=== PATIENT | male | born 1950 | race Caucasian/White ===

== ENCOUNTER 2017-03-31 12:39 | Outpatient (CLI) | payer MEDICARE, OTHER ==
[~2017-03-31] VITALS: Ht 172.7 cm; Wt 100.0 kg
[~2017-03-31 12:39] MED LIST: 00186-0370-20 IH; APRESOLINE 25MG25 MG PO; ASPIR-LOW81 MG PO; ASPIR-LOX325 MG PO; ASPIRIN 32325 MG/TAB PO; ASPIRIN E.C. 8181 MG PO; ATENOLOL25 MG PO; AVODART 0.5MG0.5 MG PO; BUMEX 1MG TA1 MG/TA1 PO; BYSTOLIC5 MG PO; CEPHALEXIN500 M1 PO; CLARITIN 1010 MG/TAB PO; CLARITIN10 MG PO; CLOPIDOGREL PO; COLCRYS0.6 MG PO; COQ-10 PO; COREG 6.256.25 MG/TA PO; DIOVAN 40MG40 MG PO; EFFIENT10 MG PO; FAMVIR 500500 MG/TAB PO; FISH OIL CONC1000 MG PO; FISH OIL CONCEN1 SG2 PO; FISH OIL1000 MG PO; FLOMAX 0.40.4 MG/CAP PO; FLONASE NASAL S16 GM NS; FOLIC ACID 11 MG/TA1 PO; HCTZ 25MG25 MG PO; HYTRIN 1MG C1 MG/CAP PO; HYTRIN 2MG CAPSU2 MG PO; IMDUR 30MG30 MG/TAB PO; KAYEXALATE15 GM/60 M PO; KEPPRA750 MG PO; LIPITOR10 MG PO; LISINOPRIL10 MG PO; LYSINE PO; MAG-OX 400400 MG/TAB PO; METOPROLOL SUCC50 MG PO; NEPHROCAP PO; NITROQUICK0.4 MG SL; NITROSTAT0.4 MG SL; NITROSTAT0.4 MG/TAB SL; NORCO 325 MG-51 TAB PO; NORCO 325 MG-7.1 TAB PO; NORVASC 5MG5 MG/TAB PO; NORVASC2.5 MG PO; OMEGA-3 FISH1000 MG PO; PERCOCET 325 MG1 TA2 PO; PHENERGAN 25 TA25 MG PO; PHENTERMINE PO; PHOS LO PO; PLAVIX 75MG TAB75 MG PO; PRAVACHOL10 MG PO; PRILOSEC 20MG20 MG PO; PRILOTC; PROVENTIL0.09 MG/A1 IH; RANEXA 500MG T500 MG PO; ROXICODONE 55 MG/TAB PO; SILDENAFIL PO; SODIUM BICARBO650 MG PO; TENORMIN 5050 MG/TAB PO; TIROSINT50 MCG PO; TRICOR145 MG PO; TUMS E-X750 MG PO; TUMS EXTRA STR750 MG PO; TUMS500 MG PO; TYLENOL 500MG500 MG PO; ULORIC40 MG PO; ULTRAM 50MG TAB50 MG PO; VALTREX PO; VIAGRA 25MG TAB25 MG PO; VITAMIN C500 MG PO; VITAMIN D 1001000 IU PO; VITAMIN D1000 IU PO; VITAMIN D32000 IU PO; VYTORIN; VYTORIN 10 MG-11 TAB PO; VYTORIN 10 MG-21 TAB PO; XANAX .25M0.25 MG/TA PO; XANAX0.25 MG PO; ZYLOPRIM 100MG100 MG PO
[2017-03-31] MEDS ORDERED: ASPIRIN 81M81 MG/TA2 PO (13:52)
[2017-03-31] MEDS ORDERED: PRIL40 PO (13:53)
[2017-03-31] MEDS ORDERED: LEXAPRO20 MG PO (13:53)
[2017-03-31] MEDS ORDERED: MULTAQ400 MG PO (13:54)
[2017-03-31] MEDS ORDERED: KEPPRA 500MG500 MG PO (13:54)
[2017-03-31] MEDS ORDERED: TYLENOL 8 HR PO (13:55)
[2017-03-31] MEDS ORDERED: FLOMAX 0.40.4 MG/CAP PO (13:56)
[2017-03-31] MEDS ORDERED: RENVELA800 MG PO (13:56)
[2017-03-31] MEDS ORDERED: SENSIPAR30 MG PO (13:57)
[2017-03-31] MEDS ORDERED: NEURONTIN100 MG/CAP PO (13:57)
[2017-03-31] MEDS ORDERED: STOOL SOFTENER100 M2 PO (13:58)
[2017-03-31] MEDS ORDERED: CAVERJECT20 MCG IJ (14:00)
[2017-03-31 16:04] VITALS: BP 139/81; PULSE 59
[2017-03-31 17:15] VITALS: BP 130/81; PULSE 64; TEMP 98.1
[2017-03-31 17:30] VITALS: BP 126/82; PULSE 61; TEMP 98
[2017-03-31 17:45] VITALS: BP 135/86; PULSE 65; TEMP 98
[2017-03-31 17:58] VITALS: BP 146/75; PULSE 63; TEMP 97.7
[2017-03-31 18:31] VITALS: BP 139/81; PULSE 62; TEMP 98
== END 2017-03-31 17:16 | disposition home or self-care (01) ==
LOC: COL.CAR 12:39
DX: N18.6 End stage renal disease (principal); I25.10 Atherosclerotic heart disease of native coronary artery without angina pectoris; Z88.6 Allergy status to analgesic agent; Z88.5 Allergy status to narcotic agent
CPT/HCPCS: C1725; C1769; C1894; J1644; J2250; J3010; Q9967

== ENCOUNTER → 2018-04-10 | Outpatient (CLI) | payer MEDICARE, OTHER ==
[~2018-04-10] MED LIST changes: +ASPIRIN 81M81 MG/TA2 PO; +CAVERJECT20 MCG IJ; +KEPPRA 500MG500 MG PO; +LEXAPRO20 MG PO; +MULTAQ400 MG PO; +NEURONTIN100 MG/CAP PO; +PRIL40 PO; +RENVELA800 MG PO; +SENSIPAR30 MG PO; +STOOL SOFTENER100 M2 PO; +TYLENOL 8 HR PO
== END ==
LOC: COL.RAD 07:15
DX: M19.011 Primary osteoarthritis, right shoulder (principal); M75.111 Incomplete rotator cuff tear or rupture of right shoulder, not specified as traumatic; S46.811A Strain of other muscles, fascia and tendons at shoulder and upper arm level, right arm, initial encounter

== ENCOUNTER → 2018-05-24 | Outpatient (CLI) | payer MEDICARE, OTHER | LOC: COL.RAD 13:02 | DX: M47.817 Spondylosis without myelopathy or radiculopathy, lumbosacral region (principal); M54.41 Lumbago with sciatica, right side ==

== ENCOUNTER 2018-06-03 10:32 | Emergency (ER) | payer MEDICARE, OTHER ==
[~2018-06-03] VITALS: Ht 172.7 cm; Wt 139.5 kg
[~2018-06-03 10:32] MED LIST changes: +BRINTELLIX10 PO; +CALCITRIOL PO; +VENOFER IM
[2018-06-03 10:36] VITALS: TEMP 98
[2018-06-03 11:14] LABS: BASO % 0.3 % (0.0-2.0); EOS # 0.1 (0.0-0.7); EOS % 0.7 % (0-4.0); GRAN # 9.2 (1.4-6.5); GRAN % 77.9 % (42.2-75.2); HEMOGLOBIN 10.3 g/dl (13.5-18.0); LYMPH # 1.7 (1.2-3.4); LYMPH % 14.4 % (20.0-51.0); MEAN CELL VOLUME 99 fl (80.0-100.0); MEAN CORPUSCULAR HEMOGLOBIN 33 pg (27.0-31.0); MEAN CORPUSCULAR HGB CONC 33 g/dl (33.0-37.0); MEAN PLATELET VOLUME 9.4 fl (7.4-10.4); MONO # 0.8 (0.1-0.6); MONO % 6.4 % (1.7-9.3); PLATELET COUNT 148 K/mm3 (130-400); RED BLOOD COUNT 3.17 M/mm3 (4.20-5.60); REDCELL DISTRIBUTION WIDTH-CV 13.9 % (11.5-14.5)
[2018-06-03 11:15] LABS: HEMATOCRIT 31.3 % (42.0-52.0)
[2018-06-03 11:20] LABS: BILIRUBIN,TOTAL 0.5 mg/dL (0.0-1.0); CALCIUM 9.3 mg/dL (8.4-10.2); POTASSIUM 4.6 mmol/L (3.4-5.0); TOTAL PROTEIN 6.6 gm/dL (6.4-8.2)
[2018-06-03 11:33] LABS: CREATININE, serum 10.71 mg/dL (0.66-1.25)
[2018-06-03] MEDS ORDERED: DULCOLAX STOOL100 MG PO (12:05)
[2018-06-03] MEDS ORDERED: PERCOCET 325 MG1 TA3 PO (13:13)
[2018-06-03 13:22] VITALS: BP 156/72; PULSE 86
== END 2018-06-03 13:22 | disposition home or self-care (01) ==
LOC: COL.ER 10:32
PROVIDERS: Family Medicine
DX: S00.93XA Contusion of unspecified part of head, initial encounter (principal); N18.6 End stage renal disease; M54.16 Radiculopathy, lumbar region; G62.9 Polyneuropathy, unspecified; Z79.51 Long term (current) use of inhaled steroids; W19.XXXA Unspecified fall, initial encounter; Y92.59 Other trade areas as the place of occurrence of the external cause
CPT/HCPCS: J1170

== ENCOUNTER → 2018-06-05 | Outpatient (CLI) | payer MEDICARE, OTHER ==
[~2018-06-05] VITALS: Ht 172.7 cm; Wt 106.0 kg
[~2018-06-05] MED LIST changes: +DULCOLAX STOOL100 MG PO; +PERCOCET 325 MG1 TA3 PO
[2018-06-05 07:13] VITALS: BP 171/94; PULSE 92
[2018-06-05 08:10] VITALS: BP 174/99; PULSE 78
--- NOTE | 2018-06-05 08:30 | NUR ---
pt out to car per wheelchair, denies pain. Pt ambulates without difficulty. Pt has neuropathy in his feet and states it feels the same. Pt up and into car without assistance.
== END ==
LOC: COL.RAD 06-01 09:30
DX: M51.26 Other intervertebral disc displacement, lumbar region (principal)
CPT/HCPCS: J3301

== ENCOUNTER → 2018-08-29 | Outpatient (CLI) | payer MEDICARE, OTHER ==
[~2018-08-29] VITALS: Ht 172.7 cm; Wt 105.3 kg
[2018-08-29 12:23] VITALS: BP 139/90; PULSE 88
[2018-08-29 13:59] VITALS: BP 145/92; PULSE 67
--- NOTE | 2018-08-29 14:27 | NUR ---
SPOKE TO DR GUAMAN ABOUT PT'S NUMB BOTTOM, PT DID SAY IT WAS NOT NUMB ON THE RIGHT SIDE JUST THE LEFT SIDE NOW DR GUAMAN SAID HE COULD GO. PT TAKEN TO POV
== END ==
LOC: COL.RAD 11:53
DX: M51.16 Intervertebral disc disorders with radiculopathy, lumbar region (principal)
CPT/HCPCS: J3301

== ENCOUNTER → 2018-10-31 | Outpatient (CLI) | payer MEDICARE, OTHER ==
[~2018-10-31] MED LIST changes: -VENOFER IM; +VENOFER IV
== END ==
LOC: COL.RAD 10-30 08:00
DX: Z01.818 Encounter for other preprocedural examination (principal); N18.6 End stage renal disease; J32.9 Chronic sinusitis, unspecified

== ENCOUNTER → 2018-11-03 | Outpatient (CLI) | payer MEDICARE, OTHER ==
[2018-11-03 13:42] VITALS: BP 152/91; PULSE 67
--- NOTE | 2018-11-03 13:47 | NUR ---
PT TAKEN BACK TO CT
[2018-11-03 14:10] VITALS: BP 141/90; PULSE 61
--- NOTE | 2018-11-03 14:47 | NUR ---
PT WAS ABLE TO STAND AND AMBULATE SEVERAL FEET STEADILY. PT WAS TAKEN TO [facility] IN WHEELCHAIR.
== END ==
LOC: COL.RAD 13:00
DX: M51.26 Other intervertebral disc displacement, lumbar region (principal)
CPT/HCPCS: J3301

== ENCOUNTER → 2019-01-04 | Outpatient (CLI) | payer MEDICARE, OTHER | LOC: COL.RAD 12-28 14:45 | DX: M48.061 Spinal stenosis, lumbar region without neurogenic claudication (principal); M51.16 Intervertebral disc disorders with radiculopathy, lumbar region ==

== ENCOUNTER → 2019-01-22 | Outpatient (CLI) | payer MEDICARE, OTHER | LOC: COL.RAD 13:38 | DX: S52.691A Other fracture of lower end of right ulna, initial encounter for closed fracture (principal) ==

== ENCOUNTER → 2019-03-07 | Outpatient (CLI) | payer MEDICARE, OTHER | LOC: COL.RAD 11:30 | DX: K57.30 Diverticulosis of large intestine without perforation or abscess without bleeding (principal); N26.1 Atrophy of kidney (terminal) | CPT/HCPCS: Q9967 ==

== ENCOUNTER 2019-04-18 13:09 | Emergency (ER) | payer MEDICARE, OTHER ==
[~2019-04-18] VITALS: Ht 172.7 cm; Wt 89.5 kg
[2019-04-18 13:17] VITALS: TEMP 98.1
[2019-04-18 14:15] LABS: BASO % 0.4 % (0.0-2.0); EOS # 0.1 (0.0-0.7); EOS % 0.7 % (0-4.0); GRAN # 6.5 (1.4-6.5); GRAN % 87.3 % (42.2-75.2); HEMOGLOBIN 10.2 g/dl (13.5-18.0); LYMPH # 0.4 (1.2-3.4); LYMPH % 5.4 % (20.0-51.0); MEAN CELL VOLUME 101 fl (80.0-100.0); MEAN CORPUSCULAR HEMOGLOBIN 33 pg (27.0-31.0); MEAN CORPUSCULAR HGB CONC 32 g/dl (33.0-37.0); MEAN PLATELET VOLUME 9.5 fl (7.4-10.4); MONO # 0.4 (0.1-0.6); MONO % 5.8 % (1.7-9.3); PLATELET COUNT 175 K/mm3 (130-400); RED BLOOD COUNT 3.13 M/mm3 (4.20-5.60)
[2019-04-18 14:18] LABS: HEMATOCRIT 31.7 % (42.0-52.0)
[2019-04-18 14:23] LABS: INR 1.2 (0.8-3.0); PROTHROMBIN TIME 14.5 SECONDS (9.7-12.8)
[2019-04-18 14:25] LABS: ALBUMIN 4.1 gm/dL (3.5-5.0); BILIRUBIN,TOTAL 0.9 mg/dL (0.0-1.0); CALCIUM 10.2 mg/dL (8.4-10.2); CREATININE, serum 1.69 (0.66-1.25); POTASSIUM 4.6 mmol/L (3.4-5.0); TOTAL PROTEIN 6.7 gm/dL (6.4-8.2)
[2019-04-18 14:37] LABS: TROPONIN-I 0.016 ng/mL (0.000-0.035)
[2019-04-18 16:46] VITALS: BP 117/84; PULSE 91
== END 2019-04-18 16:50 | disposition short-term general hospital (02) ==
LOC: COL.ER 13:09
PROVIDERS: Emergency Medicine
DX: I48.91 Unspecified atrial fibrillation (principal); R10.13 Epigastric pain; N18.6 End stage renal disease; Z79.51 Long term (current) use of inhaled steroids; Z79.82 Long term (current) use of aspirin
CPT/HCPCS: C9113; J2550; J3010

== ENCOUNTER 2019-08-06 09:16 | Emergency (ER) | payer MEDICARE, OTHER ==
[~2019-08-06] VITALS: Ht 172.7 cm; Wt 83.2 kg
[2019-08-06 10:24] VITALS: TEMP 100.4
[2019-08-06] MEDS ORDERED: LEXAPRO20 MG PO (10:46)
[2019-08-06 10:47] LABS: COLLECTION METHOD CLEAN CATCH
[2019-08-06] MEDS ORDERED: REGLAN 5MG T5 MG/TAB PO (10:47)
[2019-08-06] MEDS ORDERED: TOPROL XL 50MG50 MG PO (10:47)
[2019-08-06] MEDS ORDERED: MYFORTIC360 MG PO (10:48)
[2019-08-06] MEDS ORDERED: PROTONIX 40MG T40 MG PO (10:49)
[2019-08-06] MEDS ORDERED: BACTRIM 400 MG-1 TAB PO (10:50)
[2019-08-06] MEDS ORDERED: PROGRAF 1MG1 MG PO (10:51)
[2019-08-06] MEDS ORDERED: COUMADIN 6MG6 MG/TAB PO (10:52)
[2019-08-06] MEDS ORDERED: PREDNISONE10 MG PO (10:52)
[2019-08-06 10:58] LABS: PH 6 (5-8); SQUAMOUS EPITHELIAL None Seen /hpf; URINE APPEARANCE Clear; URINE BACTERIA None Seen /hpf; URINE BILIRUBIN Negative (NEGATIVE); URINE BLOOD 1+ (NEGATIVE); URINE COLOR Yellow; URINE GLUCOSE Negative (NEGATIVE); URINE KETONE Negative (NEGATIVE); URINE LEUKOCYTE ESTERASE Negative (NEGATIVE); URINE NITRATE Negative (NEGATIVE); URINE PROTEIN(semi-quant) 1+ (NEGATIVE); URINE UROBILINOGEN Negative (NEGATIVE)
[2019-08-06 12:18] LABS: ALBUMIN 3.3 gm/dL (3.5-5.0); BILIRUBIN,TOTAL 0.7 mg/dL (0.0-1.0); C-REACTIVE PROTEIN 2.7 mg/dL (0.0-0.9); CALCIUM 9.6 mg/dL (8.4-10.2); CREATININE, serum 1.82 (0.66-1.25); MAGNESIUM 1.2 mg/dL (1.6-2.3); PHOSPHOROUS 1.7 mg/dL (2.5-4.5); POTASSIUM 3.9 mmol/L (3.4-5.0); TOTAL PROTEIN 5.6 gm/dL (6.4-8.2)
[2019-08-06 12:35] LABS: INR 3.4 (0.8-3.0); PROTHROMBIN TIME 40.9 SECONDS (9.7-12.8)
[2019-08-06 12:38] LABS: PARTIAL THROMBOPLASTIN TIME 38.8 SECONDS (26.0-37.0)
[2019-08-06 12:40] LABS: BASO % 0.2 % (0.0-2.0); EOS % 0.1 % (0-4.0); GRAN # 11.8 (1.4-6.5); GRAN % 86.8 % (42.2-75.2); LYMPH # 0.4 (1.2-3.4); LYMPH % 2.9 % (20.0-51.0); MEAN CELL VOLUME 96 fl (80.0-100.0); MEAN CORPUSCULAR HEMOGLOBIN 31 pg (27.0-31.0); MEAN CORPUSCULAR HGB CONC 32 g/dl (33.0-37.0); MEAN PLATELET VOLUME 10.2 fl (7.4-10.4); MONO # 1.3 (0.1-0.6); MONO % 9.3 % (1.7-9.3); PLATELET COUNT 144 K/mm3 (130-400); RED BLOOD COUNT 3.58 M/mm3 (4.20-5.60); REDCELL DISTRIBUTION WIDTH-CV 13.8 % (11.5-14.5); TROPONIN-I 0.107 ng/mL (0.000-0.035)
[2019-08-06 12:41] LABS: HEMATOCRIT 34.5 % (42.0-52.0)
[2019-08-06 15:00] VITALS: BP 85/49; PULSE 78
[2019-08-06 15:49] LABS: TROPONIN-I 0.088 ng/mL (0.000-0.035)
== END 2019-08-06 16:20 | disposition short-term general hospital (02) ==
LOC: COL.ER 09:16
PROVIDERS: Emergency Medicine
DX: A41.9 Sepsis, unspecified organism (principal); R79.89 Other specified abnormal findings of blood chemistry; I48.91 Unspecified atrial fibrillation; I25.10 Atherosclerotic heart disease of native coronary artery without angina pectoris; Z03.818 Encounter for observation for suspected exposure to other biological agents ruled out; Z95.9 Presence of cardiac and vascular implant and graft, unspecified; Z79.01 Long term (current) use of anticoagulants; Z79.82 Long term (current) use of aspirin
CPT/HCPCS: A4216; C1751; C1892; J0692; J1720; J3370; J7030; J7050

== ENCOUNTER 2019-08-19 16:35 | Emergency (ER) | payer MEDICARE, OTHER ==
[~2019-08-19] VITALS: Ht 172.7 cm; Wt 84.1 kg
[~2019-08-19 16:35] MED LIST changes: +BACTRIM 400 MG-1 TAB PO; +COUMADIN 6MG6 MG/TAB PO; +MYFORTIC360 MG PO; +PREDNISONE10 MG PO; +PROGRAF 1MG1 MG PO; +PROTONIX 40MG T40 MG PO; +REGLAN 5MG T5 MG/TAB PO; +TOPROL XL 50MG50 MG PO
[2019-08-19 17:17] LABS: HEMOGLOBIN 11.1 g/dl (13.5-18.0); MEAN CELL VOLUME 98 fl (80.0-100.0); MEAN CORPUSCULAR HEMOGLOBIN 31 pg (27.0-31.0); MEAN CORPUSCULAR HGB CONC 31 g/dl (33.0-37.0); PLATELET COUNT 191 K/mm3 (130-400); RED BLOOD COUNT 3.62 M/mm3 (4.20-5.60); REDCELL DISTRIBUTION WIDTH-CV 14.1 % (11.5-14.5)
[2019-08-19 17:19] LABS: HEMATOCRIT 35.3 % (42.0-52.0)
[2019-08-19 17:24] LABS: INR 1.2 (0.8-3.0); PROTHROMBIN TIME 14.5 SECONDS (9.7-12.8)
[2019-08-19 17:41] LABS: ARTERIAL BLD GAS O2 SATURATION 94.1 % (92-100); ARTERIAL BLD GAS TCO2 CT 21.2; ARTERIAL BLOOD GAS BASE EXCESS -4.8 (-2-2); ARTERIAL BLOOD GAS PCO2 36.3 mmHg (35-45); ARTERIAL BLOOD GAS PO2 69.4 mmHg (80-100); ARTERIAL BLOOD GAS pH 7.36 (7.35-7.45)
[2019-08-19 17:45] LABS: COLLECTION METHOD CLEAN CATCH
[2019-08-19 17:57] LABS: MUCOUS Present /lpf; PH 5 (5-8); SQUAMOUS EPITHELIAL 0-2 /hpf; URINE APPEARANCE Clear; URINE BACTERIA None Seen /hpf; URINE BILIRUBIN Negative (NEGATIVE); URINE BLOOD 2+ (NEGATIVE); URINE COLOR Yellow; URINE GLUCOSE Negative (NEGATIVE); URINE KETONE Negative (NEGATIVE); URINE LEUKOCYTE ESTERASE Negative (NEGATIVE); URINE NITRATE Negative (NEGATIVE); URINE PROTEIN(semi-quant) Negative (NEGATIVE); URINE RBC 0-2 /hpf; URINE UROBILINOGEN Negative (NEGATIVE)
[2019-08-19 18:00] LABS: ALANINE AMINOTRANSFERASE 22 U/L (4-49); ALBUMIN 4.1 gm/dL (3.5-5.0); ANION GAP 6 mmol/L (7-16); BILIRUBIN,TOTAL 1.1 mg/dL (0.0-1.0); BLOOD UREA NITROGEN 34 mg/dL (9-20); C-REACTIVE PROTEIN 2.7 mg/dL (0.0-0.9); CALCIUM 10.7 mg/dL (8.4-10.2); CARBON DIOXIDE 23 mmol/L (22-30); CHLORIDE 102 mmol/L (98-107); CREATININE, serum 2.33 (0.66-1.25); GLUCOSE 140 mg/dL (74-106); LIPASE 12 U/L (23-300); SODIUM 132 mmol/L (137-145); TOTAL PROTEIN 6.8 gm/dL (6.4-8.2); TROPONIN-I < 0.012 ng/mL (0.000-0.035)
[2019-08-19 18:04] LABS: ALKALINE PHOSPHATASE 65 U/L (50-136); AST,SGOT 27 U/L (15-37)
[2019-08-19 18:05] LABS: POTASSIUM 5.9 mmol/L (3.4-5.0)
[2019-08-19 18:26] LABS: BAND 6 % (0-10); LYMPHOCYTE 5 % (20.0-51.0); NEUTROPHILS 85 % (42.0-75.2); PLATELET ESTIMATE NORMAL (NORMAL)
[2019-08-19] MEDS ORDERED: ZOVIRAX400 MG PO (18:36)
[2019-08-19] MEDS ORDERED: CIPRO 500MG TA500 MG PO (18:36)
[2019-08-19] MEDS ORDERED: FLONASEALLERGY NS (18:37)
[2019-08-19] MEDS ORDERED: KEPPRA250 MG PO (18:38)
[2019-08-19] MEDS ORDERED: ZOFRAN 4MG T4 MG/TAB PO (18:40)
[2019-08-19] MEDS ORDERED: PROAIR HFA0.09 MG/AC IH (18:41)
[2019-08-19] MEDS ORDERED: VANCOCIN H125 MG/CAP PO (18:43)
[2019-08-19] MEDS ORDERED: COUMADIN 2MG2 MG/TAB PO (18:43)
[2019-08-19] MEDS ORDERED: ZANAFLEX 4MG TAB4 MG PO (18:46)
[2019-08-19] MEDS ORDERED: PERCOCET 325 MG1 TA2 PO (18:46)
[2019-08-19 23:22] VITALS: BP 128/78; PULSE 75; TEMP 99
== END 2019-08-19 23:22 | disposition short-term general hospital (02) ==
LOC: COL.ER 16:35
PROVIDERS: Emergency Medicine
DX: N28.9 Disorder of kidney and ureter, unspecified (principal); E87.6 Hypokalemia; R07.81 Pleurodynia; I25.10 Atherosclerotic heart disease of native coronary artery without angina pectoris; K21.9 Gastro-esophageal reflux disease without esophagitis; Z95.5 Presence of coronary angioplasty implant and graft; Z95.0 Presence of cardiac pacemaker; Z94.0 Kidney transplant status; Z79.82 Long term (current) use of aspirin
CPT/HCPCS: J1815; J7030

== ENCOUNTER → 2020-01-04 | Outpatient (CLI) | payer MEDICARE, OTHER ==
[~2020-01-04] MED LIST changes: +CIPRO 500MG TA500 MG PO; +COUMADIN 2MG2 MG/TAB PO; +FLONASEALLERGY NS; +KEPPRA250 MG PO; +PROAIR HFA0.09 MG/AC IH; +VANCOCIN H125 MG/CAP PO; +ZANAFLEX 4MG TAB4 MG PO; +ZOFRAN 4MG T4 MG/TAB PO; +ZOVIRAX400 MG PO
== END ==
LOC: COL.RAD 12-26 08:15
DX: M51.26 Other intervertebral disc displacement, lumbar region (principal)

== ENCOUNTER 2020-04-17 11:00 | Outpatient (CLI) | payer MEDICARE, OTHER ==
[~2020-04-17] VITALS: Ht 172.7 cm; Wt 79.5 kg
[~2020-04-17 11:00] MED LIST changes: -TOPROL XL 50MG50 MG PO; +TOPROL XL200 MG PO
[2020-04-17 12:06] VITALS: BP 125/66; PULSE 59; TEMP 97.9
[2020-04-17 12:30] VITALS: BP 127/66; PULSE 59
[2020-04-17] MEDS ORDERED: ZYLOPRIM 100MG100 MG PO (12:43)
[2020-04-17] MEDS ORDERED: ASPIRIN E.C. 8181 MG PO (12:44)
[2020-04-17] MEDS ORDERED: PRISTIQ100 MG PO (12:44)
[2020-04-17] MEDS ORDERED: TOPROL XL 50MG50 MG PO (12:44)
[2020-04-17] MEDS ORDERED: ABILIFY2 MG PO (12:44)
[2020-04-17] MEDS ORDERED: SLOW-MAG71.5 MG PO (12:46)
[2020-04-17] MEDS ORDERED: KEPPRA250 MG PO (12:46)
[2020-04-17] MEDS ORDERED: PREDNISONE 5MG5 MG PO (12:46)
[2020-04-17] MEDS ORDERED: MULTAQ400 MG PO (12:47)
[2020-04-17] MEDS ORDERED: MYFORTIC360 MG PO (12:47)
[2020-04-17] MEDS ORDERED: METOZOLV ODT5 MG PO (12:47)
[2020-04-17] MEDS ORDERED: PROGRAF 1MG1 MG PO (12:48)
[2020-04-17] MEDS ORDERED: PROTONIX 40MG T40 MG PO (12:48)
[2020-04-17] MEDS ORDERED: PRAVACHOL 20MG20 MG PO (12:49)
[2020-04-17] MEDS ORDERED: FLOMAX 0.40.4 MG/CAP PO (12:49)
[2020-04-17] MEDS ORDERED: TYLENOL 8 HR PO (12:49)
[2020-04-17] MEDS ORDERED: CLARITIN 1010 MG/TAB PO (12:50)
[2020-04-17] MEDS ORDERED: COUMADIN 6MG6 MG/TAB PO (12:50)
[2020-04-17] MEDS ORDERED: XANAX .25M0.25 MG/TA PO (12:50)
[2020-04-17] MEDS ORDERED: PROAIR HFA0.09 MG/AC IH (12:51)
[2020-04-17] MEDS ORDERED: PERCOCET 325 MG1 TA2 PO (12:51)
[2020-04-17] MEDS ORDERED: FLONASE NASAL S16 GM NS (12:51)
[2020-04-17] MEDS ORDERED: DULCOLAX STOOL100 MG PO (12:52)
[2020-04-17] MEDS ORDERED: IMODIUM 2MG CAPS2 MG PO (12:52)
[2020-04-17] MEDS ORDERED: NITROSTAT0.4 MG/TAB SL (12:53)
[2020-04-17 13:00] VITALS: BP 135/66; PULSE 59; TEMP 96.6
[2020-04-17 13:30] VITALS: BP 132/68; PULSE 84
[2020-04-17 14:00] VITALS: BP 136/75; PULSE 58; TEMP 96
--- NOTE | 2020-04-17 14:20 | NUR ---
Pt tolerates BAM infusion without issue. INT DC'd with catheter intact and dressing intact. He exits dept under own power, wrapped in bath blanket per protocol.
== END 2020-04-17 14:20 | disposition home or self-care (01) ==
LOC: EUO 11:00
DX: U07.1 COVID-19 (principal)
CPT/HCPCS: J7050

== ENCOUNTER 2020-11-09 16:25 | Emergency (ER) | payer MEDICARE, OTHER ==
[~2020-11-09] VITALS: Ht 172.7 cm; Wt 84.1 kg
[~2020-11-09 16:25] MED LIST changes: +ABILIFY2 MG PO; +IMODIUM 2MG CAPS2 MG PO; +METOZOLV ODT5 MG PO; +PRAVACHOL 20MG20 MG PO; +PREDNISONE 5MG5 MG PO; +PRISTIQ100 MG PO; +SLOW-MAG71.5 MG PO; +TOPROL XL 50MG50 MG PO
[2020-11-09 17:14] LABS: BASO % 0.4 % (0.0-2.0); EOS % 0.3 % (0-4.0); GRAN # 4.8 (1.4-6.5); GRAN % 71.2 % (42.2-75.2); HEMATOCRIT 40.8 % (42.0-52.0); HEMOGLOBIN 12.9 g/dl (13.5-18.0); LYMPH # 1.4 (1.2-3.4); LYMPH % 21.2 % (20.0-51.0); MEAN CELL VOLUME 92 fl (80.0-100.0); MEAN CORPUSCULAR HEMOGLOBIN 29 pg (27.0-31.0); MEAN CORPUSCULAR HGB CONC 32 g/dl (33.0-37.0); MEAN PLATELET VOLUME 9.6 fl (7.4-10.4); MONO # 0.5 (0.1-0.6); MONO % 6.6 % (1.7-9.3); PLATELET COUNT 177 K/mm3 (130-400); RED BLOOD COUNT 4.42 M/mm3 (4.20-5.60); REDCELL DISTRIBUTION WIDTH-CV 13.4 % (11.5-14.5)
[2020-11-09 17:24] LABS: ALBUMIN 4.5 gm/dL (3.5-5.0); BILIRUBIN,TOTAL 0.4 mg/dL (0.0-1.0); CALCIUM 10.2 mg/dL (8.4-10.2); CREATININE, serum 1.58 (0.66-1.25); POTASSIUM 5.5 mmol/L (3.4-5.0)
[2020-11-09 18:23] VITALS: BP 151/70; PULSE 68
[2020-11-09 18:26] LABS: INR 3.8 (0.8-3.0); PROTHROMBIN TIME 42.7 SECONDS (9.7-12.8)
== END 2020-11-09 18:23 | disposition home or self-care (01) ==
LOC: COL.ER 16:25
PROVIDERS: Family Medicine
DX: S50.02XA Contusion of left elbow, initial encounter (principal); S40.022A Contusion of left upper arm, initial encounter; I12.9 Hypertensive chronic kidney disease with stage 1 through stage 4 chronic kidney disease, or unspecified chronic kidney disease; K21.9 Gastro-esophageal reflux disease without esophagitis; J45.909 Unspecified asthma, uncomplicated; E78.5 Hyperlipidemia, unspecified; N18.9 Chronic kidney disease, unspecified; Z79.01 Long term (current) use of anticoagulants; W19.XXXA Unspecified fall, initial encounter; Z79.899 Other long term (current) drug therapy; Z79.52 Long term (current) use of systemic steroids

== ENCOUNTER 2020-11-14 21:15 | Inpatient (IN) | payer MEDICARE, OTHER ==
[~2020-11-14] VITALS: Ht 172.7 cm; Wt 84.1 kg
[2020-11-14 23:27] LABS: BASO % 0.5 % (0.0-2.0); EOS % 0.1 % (0-4.0); GRAN # 6.2 (1.4-6.5); LYMPH # 0.9 (1.2-3.4); LYMPH % 11.6 % (20.0-51.0); MEAN CELL VOLUME 94 fl (80.0-100.0); MEAN CORPUSCULAR HGB CONC 32 g/dl (33.0-37.0); MEAN PLATELET VOLUME 9.6 fl (7.4-10.4); MONO # 0.7 (0.1-0.6); MONO % 8.4 % (1.7-9.3); PLATELET COUNT 164 K/mm3 (130-400); RED BLOOD COUNT 3.18 M/mm3 (4.20-5.60); REDCELL DISTRIBUTION WIDTH-CV 13.6 % (11.5-14.5)
[2020-11-14 23:33] LABS: HEMOGLOBIN 9.5 g/dl (13.5-18.0); MEAN CORPUSCULAR HEMOGLOBIN 30 pg (27.0-31.0)
[2020-11-14 23:35] LABS: INR 4.9 (0.8-3.0)
[2020-11-14 23:37] LABS: PROTHROMBIN TIME 54.8 SECONDS (9.7-12.8)
[2020-11-14 23:41] LABS: ALBUMIN 4.2 gm/dL (3.5-5.0); BILIRUBIN,TOTAL 0.7 mg/dL (0.0-1.0); C-REACTIVE PROTEIN 4.4 mg/dL (0.0-0.9); CREATININE, serum 1.83 (0.66-1.25); POTASSIUM 4.7 mmol/L (3.4-5.0); TOTAL PROTEIN 6.7 gm/dL (6.4-8.2)
[2020-11-15] VITALS (9 sets, daily range): BP systolic 117–192; BP diastolic 39–94; PULSE 62–65; TEMP 97.6–98.3
[2020-11-15] MEDS ORDERED: PERCOCET 325 MG1 TA2 PO (04:45)
[2020-11-15] MEDS ORDERED: PRISTIQ100 MG PO (04:46)
[2020-11-15] MEDS ORDERED: ZANAFLEX CAPSULE4 MG PO (04:46)
[2020-11-15] MEDS ORDERED: SYNTHROID0.05 MG/TA PO (06:49)
[2020-11-15] MEDS ORDERED: REGLAN 5MG T5 MG/TAB PO (06:54)
[2020-11-15] MEDS ORDERED: PROGRAF 0.5MG0.5 MG PO (06:57)
[2020-11-15] MEDS ORDERED: [UNRECOGNIZED DRUG - OTHER] (07:01)
[2020-11-15 07:02] LABS: BASO % 0.5 % (0.0-2.0); EOS % 0.2 % (0-4.0); GRAN # 4.5 (1.4-6.5); GRAN % 70.8 % (42.2-75.2); LYMPH # 1.1 (1.2-3.4); LYMPH % 17.7 % (20.0-51.0); MEAN CELL VOLUME 93 fl (80.0-100.0); MEAN CORPUSCULAR HGB CONC 32 g/dl (33.0-37.0); MEAN PLATELET VOLUME 9.5 fl (7.4-10.4); MONO # 0.7 (0.1-0.6); MONO % 10.3 % (1.7-9.3); PLATELET COUNT 144 K/mm3 (130-400); RED BLOOD COUNT 3.08 M/mm3 (4.20-5.60); REDCELL DISTRIBUTION WIDTH-CV 13.7 % (11.5-14.5)
[2020-11-15 07:07] LABS: HEMATOCRIT 28.7 % (42.0-52.0); HEMOGLOBIN 9.1 g/dl (13.5-18.0); MEAN CORPUSCULAR HEMOGLOBIN 30 pg (27.0-31.0)
[2020-11-15 07:09] LABS: PROTHROMBIN TIME 33.8 SECONDS (9.7-12.8)
[2020-11-15 07:10] LABS: CALCIUM 9.7 mg/dL (8.4-10.2); CREATININE, serum 1.53 (0.66-1.25); POTASSIUM 5.1 mmol/L (3.4-5.0)
[2020-11-15 08:28] LABS: COLLECTION METHOD CLEAN CATCH
[2020-11-15 08:33] LABS: PH 5 (5-8); SQUAMOUS EPITHELIAL 0-2 /hpf; URINE APPEARANCE Clear; URINE BACTERIA None Seen /hpf; URINE BILIRUBIN Negative (NEGATIVE); URINE BLOOD Negative (NEGATIVE); URINE COLOR Yellow; URINE GLUCOSE Negative (NEGATIVE); URINE KETONE Negative (NEGATIVE); URINE LEUKOCYTE ESTERASE Negative (NEGATIVE); URINE NITRATE Negative (NEGATIVE); URINE PROTEIN(semi-quant) Negative (NEGATIVE); URINE RBC 0-2 /hpf; URINE UROBILINOGEN Negative (NEGATIVE)
--- NOTE | 2020-11-15 13:13 | NUR ---
Sw met with the pt, present. The pt just got back from [facility] and answered questions for me. The pt lives at home with his , Balbina (ph# [phone]). Jayson informed Sw that he is independent on all ADLs and uses a walker. His PCP is Dr. Scott and he gets his medications from [facility] and has no troubles obtaining the cost. The states they have a DPAO-Hc. No other needs stated at this time. Sw to await further recommendations and follow up. D/c: Home with .
--- NOTE | 2020-11-15 13:34 | NUR ---
PT TO ROOM 327 PER BED WITH REPORT FROM MAIRA BUSTAMANTE PACU @9180. PT IS DROWSEY BUT AROUSES TO VERBAL. VSS. I&D OF LEFT ARM. DRESSING TO LEFT ARM CDI WITH OCCLUSIVE BULKY DRESSSING OVER INCISION.
--- NOTE | 2020-11-15 13:44 | NUR ---
RESTING QUIETLY. AT BS.
[2020-11-16 03:58] VITALS: BP 137/55; PULSE 69; TEMP 98.1
[2020-11-16 07:05] LABS: BASO % 0.3 % (0.0-2.0); EOS % 0.2 % (0-4.0); GRAN # 4.2 (1.4-6.5); GRAN % 73.6 % (42.2-75.2); LYMPH # 0.9 (1.2-3.4); MEAN CELL VOLUME 96 fl (80.0-100.0); MEAN CORPUSCULAR HGB CONC 31 g/dl (33.0-37.0); MEAN PLATELET VOLUME 9.3 fl (7.4-10.4); MONO # 0.5 (0.1-0.6); MONO % 9.2 % (1.7-9.3); PLATELET COUNT 146 K/mm3 (130-400); RED BLOOD COUNT 2.85 M/mm3 (4.20-5.60); REDCELL DISTRIBUTION WIDTH-CV 13.8 % (11.5-14.5)
[2020-11-16 07:13] LABS: HEMATOCRIT 27.4 % (42.0-52.0); HEMOGLOBIN 8.5 g/dl (13.5-18.0); MEAN CORPUSCULAR HEMOGLOBIN 30 pg (27.0-31.0)
[2020-11-16 07:14] LABS: INR 1.2 (0.8-3.0); PROTHROMBIN TIME 13.8 SECONDS (9.7-12.8)
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
[2020-11-16 07:21] LABS: CALCIUM 9.7 mg/dL (8.4-10.2); CREATININE, serum 1.38 (0.66-1.25); POTASSIUM 4.8 mmol/L (3.4-5.0)
[2020-11-16 07:58] VITALS: BP 129/48; PULSE 66; TEMP 99
--- NOTE | 2020-11-16 10:35 | NUR ---
PT UP TO RECLINER FOR BREAKFAST. CHANGED DRESSING AND REMOVED STEVEN, WRAPPED WIH JOANNE WRAP OVER GAUZE.
[2020-11-16 12:00] VITALS: PULSE 69; TEMP 98.9
[2020-11-16 16:05] VITALS: BP 161/58; PULSE 66; TEMP 99
[2020-11-16 18:52] LABS: HEMATOCRIT 28.3 % (42.0-52.0); HEMOGLOBIN 8.7 g/dl (13.5-18.0)
[2020-11-16 19:48] VITALS: BP 129/45; PULSE 66; TEMP 98.1
[2020-11-16 23:45] VITALS: BP 116/41; PULSE 70; TEMP 99.5
[2020-11-17 04:05] VITALS: BP 123/39; PULSE 73; TEMP 98.5
--- NOTE | 2020-11-17 06:22 | NUR ---
RESTING QUIETLY. A BIT IMPULSIVE AT TIMES. PERCOCET FOR LT UPPER DISCOMFORT.
--- NOTE | 2020-11-17 07:00 | NUR ---
Report received from DIANNA Rodriguez. PT in bed resting, denies needs, will continue to monitor.
[2020-11-17 07:34] LABS: BASO % 0.3 % (0.0-2.0); EOS % 0.3 % (0-4.0); GRAN # 4.7 (1.4-6.5); LYMPH # 1.1 (1.2-3.4); LYMPH % 16.4 % (20.0-51.0); MEAN CELL VOLUME 97 fl (80.0-100.0); MEAN CORPUSCULAR HGB CONC 30 g/dl (33.0-37.0); MEAN PLATELET VOLUME 9.6 fl (7.4-10.4); MONO # 0.7 (0.1-0.6); MONO % 10.4 % (1.7-9.3); PLATELET COUNT 172 K/mm3 (130-400); RED BLOOD COUNT 2.92 M/mm3 (4.20-5.60); REDCELL DISTRIBUTION WIDTH-CV 13.7 % (11.5-14.5)
[2020-11-17 07:36] LABS: HEMATOCRIT 28.2 % (42.0-52.0); HEMOGLOBIN 8.5 g/dl (13.5-18.0); MEAN CORPUSCULAR HEMOGLOBIN 29 pg (27.0-31.0)
[2020-11-17 07:46] LABS: CREATININE, serum 1.49 (0.66-1.25); POTASSIUM 4.8 mmol/L (3.4-5.0)
[2020-11-17 08:14] VITALS: BP 115/42; PULSE 75; TEMP 99.2
--- NOTE | 2020-11-17 08:22 | NUR ---
Assessmetn charted. Changed dressing to aquacel per orders, pt toerated well. LUE elevated on pillows but pt does not want ice. Alert and oriented. Resting in bed well. pain is 4/10, percocet helpful. INT to LUC. RYAN AV fistula strong thrill and bruit. Will continue to monitor.
[2020-11-17 08:25] LABS: INR 1.2 (0.8-3.0)
[2020-11-17] MEDS ORDERED: COUMADIN 3MG3 MG/TAB PO (09:02)
--- NOTE | 2020-11-17 10:15 | NUR ---
Initial visit; Patient thanked Drawing Kiln Operator for looking in on him and offering to keeping him in Drawing Kiln Operator's prayers.
--- NOTE | 2020-11-17 13:01 | NUR ---
The patient's PA notified [facility] that the patient and his are interested in home health and will be discharging today. SOLANGE contacted the patient's , Balbina, to discuss home health. Balbina confirms that the plan is for the patient to return back home with her and that they are interested in home health. SOLANGE informed Balbina of the different home health agencies that serve [place]. The patient's chose [facility]. [facility]ANGE contacted and faxed a referral and the patient's d/c orders to Arminda at [facility]. The patient discharged back home with his today, 11/17, with home health services for skille nursing/PT/OT tentatively through [facility]. No additional needs at this time.
--- NOTE | 2020-11-17 13:48 | NUR ---
Discharge teachig ncompleted at this time. Pt and at bedside, reviewed f/u appointments, sent with one aquacel in case of need. Pt left with home medications from pharmacy. Pt showered here before dishcarging, able to do this with 's assistance. Packet reviewed, set up home health per request, social work confirmed it is set up. Pt ambulated out with myself and all belongings, to drive home, criteria met.
--- NOTE | 2020-11-17 14:28 | NUR ---
Arminda, at [facility], reports that they are able to accept the patient for services and that she will be reaching out to the patient's . No additional needs at this time.
== END 2020-11-17 13:00 | disposition home health service (06) | DRG 813 ==
LOC: COL.ER 21:15 → SURG 11-15 01:19
PROVIDERS: Nurse Practitioner; Nurse Practitioner Family; Orthopaedic Surgery; Physician Assistant; ADMIT Student in an Organized Health Care Education/Training Program
PROC: 0JCH0ZZ Extirpation of Matter from Left Lower Arm Subcutaneous Tissue and Fascia, Open Approach (ICD-10-PCS; principal; 2020-11-15 11:36)
DX: D68.32 Hemorrhagic disorder due to extrinsic circulating anticoagulants (principal); Z94.0 Kidney transplant status; D62 Acute posthemorrhagic anemia; S50.12XA Contusion of left forearm, initial encounter; I48.91 Unspecified atrial fibrillation; Z79.01 Long term (current) use of anticoagulants; Z95.5 Presence of coronary angioplasty implant and graft; I25.10 Atherosclerotic heart disease of native coronary artery without angina pectoris; Z95.0 Presence of cardiac pacemaker; I12.9 Hypertensive chronic kidney disease with stage 1 through stage 4 chronic kidney disease, or unspecified chronic kidney disease; N18.9 Chronic kidney disease, unspecified; J45.909 Unspecified asthma, uncomplicated; K21.9 Gastro-esophageal reflux disease without esophagitis; E78.5 Hyperlipidemia, unspecified; I27.20 Pulmonary hypertension, unspecified; G40.409 Other generalized epilepsy and epileptic syndromes, not intractable, without status epilepticus; G62.9 Polyneuropathy, unspecified; E03.9 Hypothyroidism, unspecified; F32.9 Major depressive disorder, single episode, unspecified; M1A.9XX0 Chronic gout, unspecified, without tophus (tophi); Z79.82 Long term (current) use of aspirin; W18.39XA Other fall on same level, initial encounter; Y92.003 Bedroom of unspecified non-institutional (private) residence as the place of occurrence of the external cause; Z95.1 Presence of aortocoronary bypass graft
CPT/HCPCS: 99222-AI; 99232-AI; 99239; J0690; J1170; J2270; J2405; J2704; J3010; J3430; J7030; J7507; J7512

== ENCOUNTER 2021-08-28 09:39 | Day surgery (SDC) | payer MEDICARE, OTHER ==
[~2021-08-28] VITALS: Ht 172.7 cm; Wt 92.7 kg
[~2021-08-28 09:39] MED LIST changes: +COUMADIN 3MG3 MG/TAB PO; +PROGRAF 0.5MG0.5 MG PO; +SYNTHROID0.05 MG/TA PO; +ZANAFLEX CAPSULE4 MG PO; +[UNRECOGNIZED DRUG - OTHER]
[2021-08-28 10:47] VITALS: BP 131/76; PULSE 63; TEMP 98.3
[2021-08-28] MEDS ORDERED: FLOMAX 0.40.4 MG/CAP PO (11:34)
[2021-08-28] MEDS ORDERED: COUMADIN 5MG5 MG/TAB PO (11:35)
[2021-08-28] MEDS ORDERED: CYMBALTA 60MG60 MG PO (11:35)
[2021-08-28] MEDS ORDERED: NORVASC 5MG5 MG/TAB PO (11:36)
[2021-08-28] MEDS ORDERED: TYLENOL 8 HR PO (11:38)
[2021-08-28] MEDS ORDERED: EDEX INTRACAVER (11:40)
[2021-08-28 12:45] VITALS: BP 110/64; PULSE 66; TEMP 98.3
--- NOTE | 2021-08-28 12:45 | NUR ---
Pt arrived from procedure drowsy but oriented. Monitors applied and VSS. Pt states he his not ready for anything to eat or drink. Pt oriented to room and call tanner, within reach. Will monitor per intervals.
--- NOTE | 2021-08-28 12:50 | NUR ---
is speaking with pt
[2021-08-28 13:00] VITALS: BP 115/62; PULSE 60
--- NOTE | 2021-08-28 13:00 | NUR ---
VSS. Pt served crackers and ice water per request. Pt denies nausea. No vomiting. Call tanner remains within reach.
[2021-08-28 13:15] VITALS: BP 120/72; PULSE 60
--- NOTE | 2021-08-28 13:20 | NUR ---
IV discontinued. Catheter tip intact. Pressure bandage applied. NO redness or swelling noted. VSS. left to move car. Pt denied needing assistance changing into personal clothes. Call tanner remains within reach.
--- NOTE | 2021-08-28 13:34 | NUR ---
Pt dismissed from endo via wheelchair by Anita BUSTAMANTE to pt entrence. Pt had DC packet and personal belongings and was transferred into the care of his , who is driving a private car.
== END 2021-08-28 13:30 | disposition home or self-care (01) ==
LOC: SDCO 09:39
DX: Z12.11 Encounter for screening for malignant neoplasm of colon (principal); D12.5 Benign neoplasm of sigmoid colon; K63.5 Polyp of colon; K57.30 Diverticulosis of large intestine without perforation or abscess without bleeding; G47.33 Obstructive sleep apnea (adult) (pediatric); Z86.010 Personal history of colon polyps; Z99.89 Dependence on other enabling machines and devices
CPT/HCPCS: J2704; J7120

== ENCOUNTER 2021-09-25 15:20 | Observation (INO) | payer MEDICARE, OTHER ==
[~2021-09-25] VITALS: Ht 172.7 cm; Wt 92.3 kg
[~2021-09-25 15:20] MED LIST changes: +COUMADIN 5MG5 MG/TAB PO; +CYMBALTA 60MG60 MG PO; +EDEX INTRACAVER
[2021-09-25] MEDS ORDERED: ABILIFY2 MG PO (15:52)
[2021-09-25 15:53] LABS: BASO % 0.4 % (0.0-2.0); EOS % 0.4 % (0.0-4.0); GRAN # 5.3 K/mm3 (1.4-6.5); GRAN % 73.5 % (42.2-75.2); HEMATOCRIT 37.1 % (42.0-52.0); HEMOGLOBIN 11.7 g/dl (13.5-18.0); LYMPH # 1.2 K/mm3 (1.2-3.4); LYMPH % 16.2 % (20.0-51.0); MEAN CELL VOLUME 89 fl (80.0-100.0); MEAN CORPUSCULAR HEMOGLOBIN 28 pg (27-31); MEAN CORPUSCULAR HGB CONC 32 g/dl (33.0-37.0); MEAN PLATELET VOLUME 9.5 fl (7.4-10.4); MONO # 0.6 K/mm3 (0.1-0.6); MONO % 8.8 % (1.7-9.3); PLATELET COUNT 199 K/mm3 (130-400); RED BLOOD COUNT 4.16 M/mm3 (4.20-5.60)
[2021-09-25] MEDS ORDERED: PRISTIQ100 MG PO (15:53)
[2021-09-25] MEDS ORDERED: FOSAMAX 70MG TA70 MG PO (15:54)
[2021-09-25] MEDS ORDERED: CYMBALTA 60MG60 MG PO (15:59)
[2021-09-25] MEDS ORDERED: MULTAQ400 MG PO (16:01)
[2021-09-25 16:03] LABS: PROTHROMBIN TIME 81.7 SECONDS (9.7-12.8)
[2021-09-25 16:09] LABS: ALBUMIN 3.7 gm/dL (3.4-4.8); CALCIUM 9.7 mg/dL (8.4-10.2); CREATININE, serum 1.53 mg/dL (0.72-1.25); PHOSPHOROUS 2.1 mg/dL (2.3-4.7); POTASSIUM 4.9 mmol/L (3.5-4.5)
[2021-09-25 16:18] LABS: TROPONIN-I 0.01 ng/mL (0.00-0.033)
[2021-09-25] MEDS ORDERED: PROGRAF 1MG1 MG PO (20:53)
--- NOTE | 2021-09-25 21:45 | NUR ---
Admitted to medical floor from ER- DX increased troponin,, denies chest pain at this time- states he does have overall pain from his mid abdomen down to his feet, states has neuropathy, Tele on- paced, was given a box supper tonight, did leave for the night- Understands next troponin level at 2300 tonight- IV fluids of NS at 125cc/hr. Has dried shingle lesions to left flank. Understands to call for assistance up to bathroom
[2021-09-25 22:00] VITALS: BP 141/74; PULSE 59; TEMP 97.8
[2021-09-26 00:59] VITALS: BP 138/69; PULSE 64; TEMP 98
[2021-09-26 04:53] VITALS: BP 94/53; PULSE 56; TEMP 97.8
--- NOTE | 2021-09-26 06:45 | NUR ---
Did sleep fair during the night- VSS, Troponin at CT was WNL, pt wants to go home today, talked with this morning- she will bring in his Myfortic medication since we do not carry this med. L/FA site is now INT, Right arm restriction for AV graph
[2021-09-26 07:25] LABS: BASO % 0.5 % (0.0-2.0); EOS % 0.4 % (0.0-4.0); GRAN # 6.4 K/mm3 (1.4-6.5); GRAN % 78.2 % (42.2-75.2); HEMOGLOBIN 11.5 g/dl (13.5-18.0); LYMPH # 1.2 K/mm3 (1.2-3.4); LYMPH % 14.4 % (20.0-51.0); MEAN CELL VOLUME 89 fl (80.0-100.0); MEAN CORPUSCULAR HEMOGLOBIN 28 pg (27-31); MEAN CORPUSCULAR HGB CONC 32 g/dl (33.0-37.0); MEAN PLATELET VOLUME 9.8 fl (7.4-10.4); MONO # 0.5 K/mm3 (0.1-0.6); PLATELET COUNT 199 K/mm3 (130-400); RED BLOOD COUNT 4.05 M/mm3 (4.20-5.60); REDCELL DISTRIBUTION WIDTH-CV 13.7 % (11.5-14.5)
--- NOTE | 2021-09-26 07:26 | NUR ---
Warfarin Initial Dosing Pharmacy Note Ordering Provider: Agustin Ellington MD Indication: Atrial fibrillation LABS: INR = 7 Recommendation: Pharmacy will follow daily PT/INR, hold warfarin until INR decreases to theraputic range (2-3) Home Regimen: 5 mg daily
[2021-09-26 07:43] LABS: INR 4.5 (0.8-3.0)
[2021-09-26 07:44] VITALS: BP 147/79; PULSE 69; TEMP 98.1
[2021-09-26 07:47] LABS: PROTHROMBIN TIME 52.9 SECONDS (9.7-12.8)
[2021-09-26 07:50] LABS: CALCIUM 9.2 mg/dL (8.4-10.2); CREATININE, serum 1.09 mg/dL (0.72-1.25); POTASSIUM 4.7 mmol/L (3.5-4.5)
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
--- NOTE | 2021-09-26 10:33 | NUR ---
Initial visit; Patient and his thanked Whitewater Rafting Guide for looking in on Clem this morning and wishing him well. Whitewater Rafting Guide learned patient is from [place] so she thanked him for coming to [facility].
[2021-09-26 11:11] VITALS: BP 113/62; PULSE 79; TEMP 98.4
--- NOTE | 2021-09-26 11:34 | NUR ---
ax survey worker met with patient to complete intake and discuss discharge plan. Patients Balbina ([phone]) present at bedside. Patient lives at home with his in [place]. He is independent with his ADL's and does not normally utilize any DME to assist with mobility but his states he will use it if he feels "unsteady". Patient has no day time oxygen needs but does utilize a CPAP machine at night that is managed through [facility] in [place]. PCP is Dr. Scott and he utilizes [facility] for medications. Patient does have DPOA-HC established and it can be located in his EMR. Patient is planning on returning home once medically ready. Discharge plan: Home *pending PT/OT*
[2021-09-26 15:27] VITALS: BP 105/62; PULSE 73; TEMP 98.3
--- NOTE | 2021-09-26 17:31 | NUR ---
PT REPORTING CHRONIC BACK PAIN AND PERCOCET GIVEN, PT REPORTS IT'S DIFFERENT THAN HIS "MUSCLE PAIN" WHEN REFERING TO CHEST PAIN.
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
[2021-09-26 21:29] VITALS: BP 108/58; PULSE 65; TEMP 98.6
[2021-09-27 00:05] VITALS: BP 115/67; PULSE 65; TEMP 98.3
[2021-09-27 04:08] VITALS: BP 152/78; PULSE 81; TEMP 97.8
--- NOTE | 2021-09-27 06:08 | NUR ---
VSS, Did not sleep as much last night, anxious, was given xanax x2 this shift, did wake up this morning and thought he should be going to work now?, did reorient easily, was given percocet x1 for back pain and Tylenolx1 for overall pain this shift
[2021-09-27 07:15] VITALS: BP 117/56; PULSE 63; TEMP 97.9
--- NOTE | 2021-09-27 08:10 | NUR ---
PT PLEASANT, AOX4, MEDS GIVEN PER ORDER, PT REPORTING SHARP ABD PAIN WHEN PALPATING DURING MORNING ASSESSMENT. PT REFUSING BREAKFAST, DIETARY NOTIFIED. AMISH HALE MADE AWARE OF MOMENTARY CONFUSION FOR LETTUCE TRIMMER, NO OTHER NEEDS
[2021-09-27 08:36] LABS: BASO % 0.7 % (0.0-2.0); EOS % 0.7 % (0.0-4.0); GRAN # 3.7 K/mm3 (1.4-6.5); GRAN % 65.6 % (42.2-75.2); HEMATOCRIT 37.3 % (42.0-52.0); HEMOGLOBIN 11.6 g/dl (13.5-18.0); LYMPH # 1.3 K/mm3 (1.2-3.4); LYMPH % 22.7 % (20.0-51.0); MEAN CELL VOLUME 89 fl (80.0-100.0); MEAN CORPUSCULAR HEMOGLOBIN 28 pg (27-31); MEAN CORPUSCULAR HGB CONC 31 g/dl (33.0-37.0); MEAN PLATELET VOLUME 9.7 fl (7.4-10.4); MONO # 0.6 K/mm3 (0.1-0.6); MONO % 9.8 % (1.7-9.3); PLATELET COUNT 181 K/mm3 (130-400); RED BLOOD COUNT 4.17 M/mm3 (4.20-5.60); REDCELL DISTRIBUTION WIDTH-CV 13.8 % (11.5-14.5)
[2021-09-27 08:45] LABS: INR 1.7 (0.8-3.0); PROTHROMBIN TIME 19.5 SECONDS (9.7-12.8)
[2021-09-27 08:55] LABS: CALCIUM 9.2 mg/dL (8.4-10.2); CREATININE, serum 1.42 mg/dL (0.72-1.25); POTASSIUM 4.2 mmol/L (3.5-4.5)
[2021-09-27] MEDS ORDERED: COUMADIN 3MG3 MG/TAB PO (09:21)
--- NOTE | 2021-09-27 11:02 | NUR ---
DISCHARGE EDUCATION PROVIDED TO PT AND PT AND HOME MEDICATION PROVIDED TO PT . PT MILLE LACS BUT ABLE TO RECALL INFORMATION. IV REMOVED, TELE REMOVED, PT ASSISTED PT GETTING DRESSED. PT THEN CALLED [facility]. PT TAKEN DOWN TO VEHICLE IN WC WITH PT BELONGINGS. NO OTHER NEEDS
== END 2021-09-27 11:04 | disposition home or self-care (01) ==
LOC: COL.ER 15:20 → MEDICAL 19:06
PROVIDERS: Emergency Medicine; Physician Assistant; Student in an Organized Health Care Education/Training Program; ADMIT Internal Medicine
DX: R07.9 Chest pain, unspecified (principal); R55 Syncope and collapse; Z79.01 Long term (current) use of anticoagulants; B02.9 Zoster without complications; D64.9 Anemia, unspecified; E78.5 Hyperlipidemia, unspecified; I25.10 Atherosclerotic heart disease of native coronary artery without angina pectoris; I27.20 Pulmonary hypertension, unspecified; I48.91 Unspecified atrial fibrillation; I12.0 Hypertensive chronic kidney disease with stage 5 chronic kidney disease or end stage renal disease; N18.6 End stage renal disease; Z99.2 Dependence on renal dialysis; G40.909 Epilepsy, unspecified, not intractable, without status epilepticus; F32.A Depression, unspecified; F41.9 Anxiety disorder, unspecified; E03.9 Hypothyroidism, unspecified
CPT/HCPCS: G0378; J2405; J7030; J7120; J7507; J7512

== ENCOUNTER 2021-11-17 14:54 | Outpatient (RCR) | payer MEDICARE, OTHER ==
[~2021-11-17] VITALS: Ht 172.7 cm; Wt 89.2 kg
[~2021-11-17 14:54] MED LIST changes: +FOSAMAX 70MG TA70 MG PO; +NATURAL E400 IU PO; +NORVASC 10MG10 MG PO; -PRAVACHOL 20MG20 MG PO; +PRAVACHOL 40MG40 MG PO; +VITAMIN B-625 MG PO
[2021-11-17 15:46] VITALS: BP 127/74; PULSE 62; TEMP 98.4
[2021-11-17] MEDS ORDERED: CARAFATE 1GM1 G PO (16:23)
[2021-11-17 16:26] VITALS: BP 122/75; PULSE 66
== END 2021-11-17 17:00 | disposition home or self-care (01) ==
LOC: EUO 14:54
DX: Z23 Encounter for immunization (principal)
CPT/HCPCS: M0220

== ENCOUNTER → 2021-11-24 | Outpatient (CLI) | payer MEDICARE, OTHER ==
--- NOTE | 2021-11-19 09:57 | NUR ---
spoke with jung regarding allergies and instructions. she was getting ready for work and could not talk very much. was not available.
[~2021-11-24] VITALS: Ht 172.7 cm; Wt 89.0 kg
[~2021-11-24] MED LIST changes: +CARAFATE 1GM1 G PO
[2021-11-24 09:27] VITALS: BP 124/65; PULSE 65; TEMP 98.6
== END ==
LOC: COL.RAD 11-11 09:00
DX: Z79.2 Long term (current) use of antibiotics (principal)

== ENCOUNTER 2022-12-23 15:32 | Inpatient (IN) | payer MEDICARE, OTHER ==
[~2022-12-23] VITALS: Ht 172.7 cm; Wt 83.6 kg
[~2022-12-23 15:32] MED LIST changes: +BENTYL 20MG20 MG/TAB PO; +BLUE-EMU LIDOC1 EACH TP; +COLESTID 1GM1 G PO; +CYMBALTA 30MG30 MG PO; +ENVARSUS XR0.75 MG PO; +ENVARSUS XR1 MG PO; +FOSAMAX 10M10 MG/TAB PO; +SYSTANE 0.4%-0.1 SOL OU; +TYLENOL 325MG325 MG PO; +VITAMIN E 400 U4001 PO
--- NOTE | 2022-12-23 18:00 | NUR ---
Pt arrives via WC to room 335, IPR. Is alert, Ox4. Assist into bed, pt able to stand/pivot and lower self onto bed. Reports pain to R mid-back/flank, 6/10 at rest and 9/10 with movement or activity. Noted to have exp wheezes to RLL, pt reports pain with deep breath. IS at bedside, remind pt how to use it. Pt reports last BM 12/23/22, states that he has ongoing loose stools since gallbladder removed. All skin appears intact. Noted to have large hematoma to R tricep area, starting just proximal to elbow and ending mid upper arm. Dinner tray was brought from medical, pt refuses tray. Reports having ongoing poor appetite. at bedside. Brought in "street clothes" for pt along with hearing aids with extra batteries and POM Envarsus XR 0.75mg and 1mg labeled for pt use. Both were placed in pt bin.
--- NOTE | 2022-12-24 00:04 | NUR ---
PT RESTIN IN BED. A&O. NO DISTRESS. PAIN MED GIVEN EARLIER AT SHIFT CHANGE BY DESEAN OLIVEIRA RN. PT RELATES PAIN IS BETTER LONG HE DOESN'T MOVE. USES OWN CPAP AT HS. HAS PACEMAKER. NO NEEDS AT THIS TIME. CALL LIGHT IN REACH. BED LARM SET.
[2022-12-24 00:24] VITALS: BP 120/67; PULSE 68; TEMP 97.9
[2022-12-24 00:45] VITALS: BP_SYST 120
--- NOTE | 2022-12-24 04:37 | NUR ---
PT CONTINUES SLEEPING. NO DISTRESS. TAKES OFF CPAP IN HIS SLEEP. SNOROUS RESP. REPOSITIONS SELF FOR CPMFORT.
[2022-12-24 05:57] VITALS: BP 141/68; PULSE 52; TEMP 98.4
--- NOTE | 2022-12-24 06:52 | NUR ---
Report received from the night nurse, DIANNA Murdock.
[2022-12-24 07:00] VITALS: BP_SYST 141
--- NOTE | 2022-12-24 09:11 | NUR ---
Patient laying in bed aupon entering. Patient alert, denies pain at this time. Noted abrasion and ecchymosis on right posterior arm. CPAP off and denies needs at this time. Call tanner within reach.
--- NOTE | 2022-12-24 10:34 | NUR ---
Waste Specialist met with patient to welcome him to the rehab unit. Patient lives in [place] with his , Balbina (ph#[phone]) and sees Dr. Scott for primary care. Patient obtains medications from either the [facility] or [facility]. Patient reports no difficulties obtaining his medications. Patient has a cane, walker, and wheelchair available at home. Patient also uses a home CPAP. Patient reports no steps inside the home or to get into the home. Patient advised he is normally able to drive himself to medical appointments and is normally independent with ADLS. Patient has DPOA-HC in EMR designating his , Balbina and his daughter, Katie (ph#[phone]).
--- NOTE | 2022-12-24 14:07 | NUR ---
Has lack of transportation kept you from medical appts, meetings, work, or from getting things needed for daily living? no How often do you feel lonely or isolated from those around you? never Over the past 5 days, how much of the time has pain made it hard for you to sleep? frequently Over the past 5 days, how often have you limited your participation in therapy due to pain? rarely/not at all Over the past 5 days, how often have you limited your day-to-day activities because of pain? frequently Have you had 2 or more falls in the past year or any fall with an injury? yes Did you have major surgery during the 100 days prior to admission? no
--- NOTE | 2022-12-24 14:32 | NUR ---
Roxicodone administered for mid/upper back pain. Patient rated pain level 8/10. See e-mar for documentation.
--- NOTE | 2022-12-24 17:19 | NUR ---
This nurse offered to assist patient in ordering meal for dinner, patient declined stating that "I don't eat dinner".
[2022-12-24 17:31] VITALS: BP 105/62; PULSE 69; TEMP 98.3
--- NOTE | 2022-12-24 18:56 | NUR ---
RECEIVED CHANGE OF SHIFT REPORT FROM DAY SHIFT RN.
[2022-12-25 05:22] VITALS: BP 136/47; BP 151/70; PULSE 58; PULSE 68; TEMP 97.8; TEMP 98.5
--- NOTE | 2022-12-25 07:06 | NUR ---
CHANGE OF SHIFT REPORT GIVEN TO DAY SHIFT RNDERRELL.
--- NOTE | 2022-12-25 08:00 | NUR ---
PATIENT AWAKE AND ALERT, SITTING UP IN BED. PATOENT DENIES ANY NEEDS OR COMPLAINTS AT THIS TIME. FALL PRECAUTIONS IN PLACE. CALL LIGHT WITHIN REACH
--- NOTE | 2022-12-25 11:43 | NUR ---
PATIENTS REQUESTING TO SPEAK WITH RT. RT PAGED AND MADE AWARE.
[2022-12-25 16:40] VITALS: BP 135/65; PULSE 59; TEMP 97.9
--- NOTE | 2022-12-25 16:41 | NUR ---
PATIENT AWAKE AND ALERT, SITTING UP IN BED. PATIENTS AT BEDSIDE. FALL PRECAUTIONS IN PLACE.
[2022-12-25 18:23] VITALS: BP_SYST 135
--- NOTE | 2022-12-25 20:05 | NUR ---
SHIFT ASSESSMENT COMLETE. VSS. A&OX4. ALL NIGHT MEDS GIVEN PER ORDER. PATIENT SITTING UP IN RECLINER VISITING WITH . PATIENT HAS NO COMPLAINTS AT THIS TIME. CHAIR ALARM ON AND CALL LIGHT IN REACH.
[2022-12-26 05:37] VITALS: BP 149/70; PULSE 69; TEMP 98.4
[2022-12-26 07:00] VITALS: BP_SYST 149
--- NOTE | 2022-12-26 07:30 | NUR ---
Pt breakfast has arrived. Woke pt for morning medications. pt reported that he was not ready for breakfast and would like to rest a little longer. Call light within reach
--- NOTE | 2022-12-26 10:07 | NUR ---
Woke pt again as he has not eaten breakfast. He initially stated that he doesn't want breafkast. Informed him that he needed to eat something or it will be lunch time soon. Pt stated that he normally doesn't get up until 5pm. Asked when he goes to sleep and he said 6am. Was reported that he did sleep last night. Encouraged the pt to get up and eat a little breakfast. Opened pt shades some and turned on the lights.
--- NOTE | 2022-12-26 10:25 | NUR ---
Pt rang call light to go to the restroom. Upon entering room, pt had an incontinent stool in bed. It was liquid in which he stated this always happens. Any time he starts to eat, he has a liquid stool. Pt reports this has been an issue for quite a while. Assisted pt up and in to the shower.
--- NOTE | 2022-12-26 15:23 | NUR ---
Pt has slept a lot of the day. He does wake easily upon entering room. Pts was with him for a while this afternoon. Pt is now back in bed. Had complaints of pain to his right side and back. PRN pain medication given
[2022-12-26 17:00] VITALS: BP 142/68; PULSE 73; TEMP 98.2
--- NOTE | 2022-12-26 18:55 | NUR ---
RECEIVED CHANGE OF SHIFT REPORT FROM DAY SHIFT RN.
[2022-12-27 05:12] VITALS: BP 147/73; PULSE 73; TEMP 98.4
--- NOTE | 2022-12-27 05:52 | NUR ---
REQUESTED/GIVEN PAIN MEDS, SEE MAR. EXIT ALARM ON, CALL LIGHT IN REACH. DENIES ANY OTHER NEEDS.
[2022-12-27 07:00] VITALS: BP_SYST 147
--- NOTE | 2022-12-27 07:20 | NUR ---
CHANGE OF SHIFT REPORT GIVEN TO DAY SHIFT RN./
--- NOTE | 2022-12-27 09:12 | NUR ---
Shift report received from the night nurseMaddy RN.
--- NOTE | 2022-12-27 09:26 | NUR ---
Patient laying in bed alert with some confusion per night nurse. AV fistula on right arm intact and patient states he hasn't used it for awhile and no longer on dialysis. Patient reports of mild chronic back pain. Assisted patient to the bathroom to void and back to the recyliner for breakfast.
--- NOTE | 2022-12-27 12:54 | NUR ---
Admission QIM scores were reviewed by the team. Code of 3 chosen for toileting hygiene was determined by team discussion to be the most usual performance for this patient during the discharge assessment period. Code of 4 chosen for rolling left to right was determined by team discussion to be the most usual performance before interventions for this patient during the assessment period. Code of 3 chosen for lying to sitting side of bed was determined by team discussion to be the most usual performance before interventions for this patient during the assessment period. Code of 3 chosen for sit to stand was determined by team discussion to be the most usual performance for this patient during the discharge assessment period. Code of 4 chosen for walking 10 feet was determined by team discussion to be the most usual performance for this patient during the discharge assessment period. Code of 4 chosen for walking 50 feet w/ 2 turns was determined by team discussion to be the most usual performance before interventions for this patient during the discharge assessment period.--Lore [place], PD
--- NOTE | 2022-12-27 15:51 | NUR ---
Smelter Liner met with Patient at bedside to review progress towards treatment goals and discuss discharge planning. Patient reports to feel like he is making progress towards his goals. SW briefed that discharge needs will be identified through the course of rehab and will be discussed with him mfor coordiantion prior to discharge. Patient presents with no concerns at this time.
[2022-12-27 16:46] VITALS: BP 162/84; PULSE 74; TEMP 98.2
--- NOTE | 2022-12-27 20:00 | NUR ---
PT A&O LAYING IN BED WITH FAMILY AT BEDSIDE. C/O CONSTANT BACK & RIB PAIN - GIVEN PRN SEE JUN. BED ALARM ON & CALL LIGHT IN REACH. PT DENYING FURTHER NEEDS AT THIS TIME.
[2022-12-27 21:41] VITALS: BP_SYST 162
[2022-12-27 22:07] VITALS: BP 119/61
[2022-12-28 05:27] VITALS: BP 131/66; PULSE 63; TEMP 97.6
--- NOTE | 2022-12-28 05:44 | NUR ---
PT SLEPT IN BED THROUGHOUT THE NIGHT & HAD UNEVENTFUL NIGHT. DENYING ANY PAIN OR NEEDS AT THIS TIME. FALL PRECAUTIONS IN PLACE & CALL LIGHT IN REACH.
[2022-12-28 07:01] VITALS: BP_SYST 131
--- NOTE | 2022-12-28 07:02 | NUR ---
Shift report received from night shift manager RN. Pt sleeping supine in bed. HOB slightly elevated. Resps are even & unlabored. No events reported overnight. Call light in reach. Bed alarm is on.
--- NOTE | 2022-12-28 07:32 | NUR ---
Pt sleeping supine in bed. Aroused easily from sleep. Pt stating that he doesn't want to eat breakfast & that he just wants to sleep. Lidocaine patch refused. Pt denies other needs. Call light in reach. Bed alarm is on.
--- NOTE | 2022-12-28 10:37 | NUR ---
Pt off unit for Group Therapy.
--- NOTE | 2022-12-28 12:35 | NUR ---
Pt assisted to supine position by PT after returning from Group Therapy. Lunch tray is at the bedside. Pt states he will take a nap first & then will eat later. Scheduled pain medication given approx 40 minutes ago. He denies other needs. Call light in reach. Bed alarm is on.
--- NOTE | 2022-12-28 17:39 | NUR ---
Pt lying supine in bed. He reports back pain at 6/10. Oxycodone given per (scheduled) order. Other needs denied. Call light in reach. Bed alarm is on.
[2022-12-28 17:47] VITALS: BP 145/79; PULSE 88; TEMP 97.9
[2022-12-28 19:00] VITALS: BP_SYST 145
--- NOTE | 2022-12-28 20:00 | NUR ---
Assessment complete. A&)x4. Denies nausea/shortness of breath. Rating pain 4/10 on pain scale to right chest-with movement-descirbed as sharp pain. Scheduled oxycodone given. VS currently stable. Noted to have right upper extremity ecchymosis as well as a right elbow skin tear. Plan of care discussed for this shift to include meds/pain control/calling for questions/concerns. Verbalized understanding. Call light in reach. Will monitor.
[2022-12-29 06:02] VITALS: BP 151/80; PULSE 100; TEMP 98.2
--- NOTE | 2022-12-29 06:14 | NUR ---
Patient had an uneventful night. Recieved scheduled oxycodone for pain rated 4-5/10 to right chest/ribs. Denied nausea/shortness of breath. VS remained stable. Denies current needs. Call light in reach. Will monitor.
[2022-12-29 06:46] VITALS: BP_SYST 151
--- NOTE | 2022-12-29 06:47 | NUR ---
Shift report received from assistant shift supervisor RN. No events reported overnight. Pt sleeping supine in bed. Resps are even & unlabored. Call light in reach. Bed alarm is on.
--- NOTE | 2022-12-29 08:30 | NUR ---
Pt is off the unit w/ PT.
--- NOTE | 2022-12-29 13:57 | NUR ---
Pt resting supine in bed. Refused his lunch - pt stated he is not hungry. Pain/discomfort denied at this time. Other needs denied. Call light in reach. Bed alarm is on.
--- NOTE | 2022-12-29 16:14 | NUR ---
Railroad Carman met with Patient at bedside to review team conference notes from this AM. SW reviewed progress towards treatment goals, barriers and interventions, and discharge planning with Patient. Patient is anticipated to discharge 12-31-22 [facility] services.
[2022-12-29 17:29] VITALS: BP 114/58; PULSE 77; TEMP 98.4
--- NOTE | 2022-12-29 19:17 | NUR ---
RECEIVED CHANGE OF SHIFT REPORT FROM DAY SHIFT RN.
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
--- NOTE | 2022-12-30 | NUR ---
PATIENT REFUSED SCD HS, STATING SCD AGGRAVATE BLE NEUROPATHY PAIN.
[2022-12-30 05:32] VITALS: BP 142/74; PULSE 86; TEMP 98.2
--- NOTE | 2022-12-30 07:06 | NUR ---
CHANGE OF SHIFT REPORT GIVEN TO DAY SHIFT RNELIZABETH.
[2022-12-30 07:08] VITALS: BP_SYST 142
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
--- NOTE | 2022-12-30 11:56 | NUR ---
Pt sleeping supine in bed. Arouses easily from sleep. Pain medication given as scheduled. Pt denies other needs. Call light in reach. Bed alarm is on.
--- NOTE | 2022-12-30 12:45 | NUR ---
Catechist contacted Patient's , Balbina to discuss discharge planning. SOLANGE reviewed discharge plan, anticipated discharge of 12-31-22 with HH PT/OT. Balbina states that they preferr [facility] and have utilized their services in the past. SOLANGE sent referral to Mauricio with [facility]. Balbina presents concern for Patient kicking his walker when at home and asks about the potential benefit of a wider walker. Balbina also inquires about the use of a trapese at home to assist Patient with being able to lay further from the edge of bed due to not being able to lift his waist to move in bed. SOLANGE agreed to speak with PT for recommendations.
--- NOTE | 2022-12-30 13:22 | NUR ---
Has lack of transportation kept you from medical appts, meetings, work, or from getting things needed for daily living? NO How often do you feel lonely or isolated from those around you? RARELY Over the past 5 days, how much of the time has pain made it hard for you to sleep? FREQUENTLY Over the past 5 days, how often have you limited your participation in therapy due to pain? RARELY/NOT AT ALL Over the past 5 days, how often have you limited your day-to-day activities because of pain? RARELY/NOT AT ALL
--- NOTE | 2022-12-30 14:50 | NUR ---
Applications Development Analyst contacted Patient's , Balbina to follow-up with her concerns for discharge. Per PT and OT, there are no concerns with Patient's level of independency with ambulating with a walker and adjusting in bed. PT does recommend following-up with [facility] providers to continue to monitor and treat as needed. Balbina acknowledges and has no further concerns. SOLANGE was contacted by [facility] who reports to accept Patient for services after discharge. SOLANGE informed Balbina.
--- NOTE | 2022-12-30 15:05 | NUR ---
Pt sleeping supine in bed. Resps are even & unlabored. Call light in reach. Bed alarm is on.
[2022-12-30 17:02] VITALS: BP 148/70; PULSE 68; TEMP 97.8
--- NOTE | 2022-12-30 18:33 | NUR ---
Pt lying supine in bed. is at the bedside. He denies any needs at this time. Call light in reach. Bed alarm is on.
--- NOTE | 2022-12-30 19:00 | NUR ---
PT A&O SITTING IN BED EATING DINNER. C/O CHRONIC BACK PAIN - SEE JUN. BED LOWERED & CALL LIGHT IN REACH. PT DENYING FURTHER NEEDS AT THIS TIME.
[2022-12-31 05:29] VITALS: BP 134/66; PULSE 66; TEMP 98.2
--- NOTE | 2022-12-31 06:21 | NUR ---
PT SLEPT THROUGHOUT THE NIGHT. DENYING FURTHER NEEDS AT THIS TIME. BED LOWERED & CALL LIGHT IN REACH.
[2022-12-31] MEDS ORDERED: CYMBALTA 60MG60 MG PO (09:16)
[2022-12-31] MEDS ORDERED: ROXICODONE 55 MG/TAB PO (09:18)
--- NOTE | 2022-12-31 09:56 | NUR ---
PATIENT ALERT AND ORIENTED X4. VSS. PATIENT DENIES ANY PAIN THIS MORNING. ASSESSMENT PERFORMED, AM MEDS ADMINISTERED. PATIENT DENIES ANY FURTHER NEEDS AT THIS TIME. CALL LIGHT IN REACH.
--- NOTE | 2022-12-31 10:09 | NUR ---
Treating Machine Operator and SW student met with Patient at bedside to conduct Medicare IM brief and review Patient's discharge plan. Patient acknowledged brief and signed form. Original placed in chart, copy provided to Patient. Patient will discharge home today with services through [facility]. [facility] accepted Patient for services.
--- NOTE | 2022-12-31 10:49 | NUR ---
DISCHARGE INSTRUCTIONS PROVIDED. PATIENT EDUCATION GIVEN. FOLLOW UP APPOINTMENTS DISCUSSED. MEDICATIONS REVIEWED. PATIENT GIVEN MEDS DUE AT THS TIME OF DISCHARGE. PATIENT DENIES ANY QUESTIONS OR CONCERNS.
--- NOTE | 2022-12-31 11:22 | NUR ---
PATIENT ESCORTED OUT WITH BELONGINGS AND
--- NOTE | 2022-12-31 12:19 | NUR ---
Saturator Tender sent discharge orders to [facility].
--- NOTE | 2022-12-31 15:20 | NUR ---
Discharge QIM scores were reviewed by the team. Code of 6 chosen for oral hygiene was determined by team discussion to be the most usual performance before interventions for this patient during the assessment period. Code of 6 chosen for toileting hygiene was determined by team discussion to be the most usual performance for this patient during the discharge assessment period. Code of 6 chosen for toilet transfers was determined by team discussion to be the most usual performance for this patient during the discharge assessment period. Code of 6 chosen for sit to lying was determined by team discussion to be the most usual performance for this patient during the discharge assessment period. Code of 6 chosen for lying to sitting was determined by team discussion to be the most usual performance for this patient during the discharge assessment period. Code of 6 chosen for sit to stand was determined by team discussion to be the most usual performance for this patient during the discharge assessment period. Code of 6 chosen for chair to bed was determined by team discussion to be the most usual performance for this patient during the discharge assessment period. Code of 6 chosen for walking 10 feet was determined by team discussion to be the most usual performance for this patient during the discharge assessment period. Code of 6 chosen for walking 50 feet w/ 2 turns was determined by team discussion to be the most usual performance before interventions for this patient during the discharge assessment period. Code of 6 chosen for walking 150 feet was determined by team discussion to be the most usual performance for this patient during the discharge assessment period.--Lore Washington,
== END 2022-12-31 11:20 | disposition home health service (06) | DRG 91 ==
PROVIDERS: ADMIT Physical Medicine & Rehabilitation Sports Medicine
DX: G92.8 Other toxic encephalopathy (principal); I21.4 Non-ST elevation (NSTEMI) myocardial infarction; Z94.0 Kidney transplant status; I25.10 Atherosclerotic heart disease of native coronary artery without angina pectoris; S22.41XD Multiple fractures of ribs, right side, subsequent encounter for fracture with routine healing; N18.9 Chronic kidney disease, unspecified; E03.9 Hypothyroidism, unspecified; Z95.1 Presence of aortocoronary bypass graft; I48.91 Unspecified atrial fibrillation; R77.8 Other specified abnormalities of plasma proteins; E83.42 Hypomagnesemia; D64.89 Other specified anemias; I12.9 Hypertensive chronic kidney disease with stage 1 through stage 4 chronic kidney disease, or unspecified chronic kidney disease; E78.5 Hyperlipidemia, unspecified; K21.9 Gastro-esophageal reflux disease without esophagitis; Z74.09 Other reduced mobility; R26.89 Other abnormalities of gait and mobility; G62.9 Polyneuropathy, unspecified; R25.1 Tremor, unspecified; N40.0 Benign prostatic hyperplasia without lower urinary tract symptoms; Z86.19 Personal history of other infectious and parasitic diseases; T40.605D Adverse effect of unspecified narcotics, subsequent encounter; Z79.899 Other long term (current) drug therapy; Z79.52 Long term (current) use of systemic steroids; W19.XXXD Unspecified fall, subsequent encounter
CPT/HCPCS: J7512; J7518

== ENCOUNTER 2023-08-16 | Emergency (ER) | payer MEDICARE, OTHER ==
[~2023-08-16] VITALS: Ht 172.7 cm; Wt 81.8 kg
[2023-08-16 00:10] VITALS: TEMP 97.8
[2023-08-16 01:04] LABS: BASO % 0.4 % (0.0-2.0); EOS % 0.4 % (0.0-4.0); GRAN # 4.9 K/mm3 (1.4-6.5); GRAN % 68.3 % (42.2-75.2); HEMOGLOBIN 10.6 g/dl (13.5-18.0); LYMPH # 1.6 K/mm3 (1.2-3.4); MEAN CELL VOLUME 87 fl (80.0-100.0); MEAN CORPUSCULAR HEMOGLOBIN 26 pg (27-31); MEAN CORPUSCULAR HGB CONC 30 g/dl (33.0-37.0); MEAN PLATELET VOLUME 10.3 fl (7.4-10.4); MONO # 0.6 K/mm3 (0.1-0.6); MONO % 8.3 % (1.7-9.3); PLATELET COUNT 163 K/mm3 (130-400); RED BLOOD COUNT 4.06 M/mm3 (4.20-5.60); REDCELL DISTRIBUTION WIDTH-CV 15.9 % (11.5-14.5)
[2023-08-16 01:05] LABS: INR 1.2 (0.8-3.0); PROTHROMBIN TIME 12.6 SECONDS (9.7-12.8)
[2023-08-16 01:08] LABS: HEMATOCRIT 35.4 % (42.0-52.0)
[2023-08-16 01:58] LABS: URINE APPEARANCE CLOUDY (CLEAR/HAZY); URINE BLOOD NEGATIVE (NEGATIVE); URINE COLOR YELLOW (YELLOW); URINE GLUCOSE NEGATIVE (NEGATIVE); URINE KETONE NEGATIVE (NEGATIVE); URINE NITRATE NEGATIVE (NEGATIVE); URINE PROTEIN(semi-quant) NEGATIVE (NEGATIVE); URINE UROBILINOGEN 0.2 E.U/dL (0.2-1.0)
[2023-08-16 02:09] LABS: COLLECTION METHOD CATHETER
[2023-08-16 02:11] LABS: ALBUMIN 3.7 g/dL (3.4-4.8); BILIRUBIN,TOTAL 0.4 mg/dL (0.2-1.2); CALCIUM 9.6 mg/dL (8.4-10.2); CREATININE, serum 1.94 mg/dL (0.72-1.25); POTASSIUM 4.6 mEq/L (3.5-4.5); TOTAL PROTEIN 6.4 g/dl (6.2-8.1)
[2023-08-16 03:03] VITALS: BP 123/81; PULSE 80
== END 2023-08-16 02:50 | disposition home or self-care (01) ==
LOC: COL.ER → EDBD 00:01 → COL.ER 02:50
PROVIDERS: Nurse Practitioner Primary Care
DX: R53.1 Weakness (principal); R41.0 Disorientation, unspecified

== ENCOUNTER 2023-10-05 19:35 | Emergency (ER) | payer MEDICARE, OTHER ==
[~2023-10-05] VITALS: Ht 172.7 cm; Wt 83.6 kg
[2023-10-05 19:51] VITALS: TEMP 97.9
[2023-10-05 21:21] LABS: BASO % 0.5 % (0.0-2.0); EOS % 0.2 % (0.0-4.0); GRAN # 4.6 K/mm3 (1.4-6.5); GRAN % 74.9 % (42.2-75.2); MEAN CELL VOLUME 87 fl (80.0-100.0); MEAN CORPUSCULAR HGB CONC 30 g/dl (33.0-37.0); MEAN PLATELET VOLUME 10.5 fl (7.4-10.4); MONO # 0.5 K/mm3 (0.1-0.6); MONO % 7.7 % (1.7-9.3); PLATELET COUNT 168 K/mm3 (130-400); RED BLOOD COUNT 3.85 M/mm3 (4.20-5.60); REDCELL DISTRIBUTION WIDTH-CV 15.9 % (11.5-14.5)
[2023-10-05 21:25] LABS: HEMATOCRIT 33.4 % (42.0-52.0); HEMOGLOBIN 9.9 g/dl (13.5-18.0); MEAN CORPUSCULAR HEMOGLOBIN 26 pg (27-31)
[2023-10-05 21:34] LABS: ALBUMIN 4.2 g/dL (3.4-4.8); BILIRUBIN,TOTAL 0.7 mg/dL (0.2-1.2); CALCIUM 9.7 mg/dL (8.4-10.2); CREATININE, serum 1.93 mg/dL (0.72-1.25); POTASSIUM 5.5 mEq/L (3.5-4.5); TOTAL PROTEIN 6.3 g/dl (6.2-8.1)
[2023-10-05 22:17] LABS: COLLECTION METHOD CATHETER
[2023-10-05 22:23] LABS: URINE APPEARANCE CLEAR (CLEAR/HAZY); URINE BLOOD NEGATIVE (NEGATIVE); URINE COLOR YELLOW (YELLOW); URINE GLUCOSE NEGATIVE (NEGATIVE); URINE KETONE NEGATIVE (NEGATIVE); URINE NITRATE NEGATIVE (NEGATIVE); URINE PROTEIN(semi-quant) TRACE (NEGATIVE); URINE UROBILINOGEN 0.2 E.U/dL (0.2-1.0)
[2023-10-05] MEDS ORDERED: Sodium Zirconium Cyclosilicate for Oral Susp 10 GM PACKET PO ONE (22:45)
[2023-10-05] MEDS ORDERED: Patiromer 8.4 G Oral Susp **** subs to Sodium Zirconium Cyclosilicate 10 G Oral Susp PO ONE (22:45)
[2023-10-05 23:10] VITALS: BP 149/101; PULSE 101
== END 2023-10-05 23:10 | disposition home or self-care (01) ==
LOC: COL.ER 19:35
PROVIDERS: Emergency Medicine
DX: E87.5 Hyperkalemia (principal); R41.0 Disorientation, unspecified
CPT/HCPCS: A9270